=== PATIENT | female | born 1975 | race Caucasian/White ===

== ENCOUNTER 2020-01-21 15:31 | Emergency (ER) | payer MEDICAID ==
[~2020-01-21] VITALS: Ht 170.2 cm; Wt 106.8 kg
[2020-01-21 15:54] VITALS: BP 144/74; Ht 170.2 cm; Wt 106.8 kg
[2020-01-21] MEDS ORDERED: CRESTOR20 MG PO (15:56)
[2020-01-21] MEDS ORDERED: GLUCOPHAGE1000 MG PO (15:56)
[2020-01-21] MEDS ORDERED: MULTI-DAY VITAM1 TAB PO (15:57)
[2020-01-21] MEDS ORDERED: NEURONTIN600 MG PO (15:57)
[2020-01-21] MEDS ORDERED: LOW DOSE ASPIRI81 M1 PO (15:57)
[2020-01-21] MEDS ORDERED: CYMBALTA60 MG PO (15:57)
[2020-01-21] MEDS ORDERED: LISINOPRIL-HCT1 EAC4 PO (15:57)
[2020-01-21] MEDS ORDERED: ALBUTEROL SULF8.5 GM INH (15:58)
[2020-01-21] MEDS ORDERED: VOLTAREN75 MG PO (17:06)
[2020-01-21] MEDS ORDERED: VIBRAMYCIN 100100 MG PO (17:08)
== END 2020-01-21 18:32 | disposition home or self-care (01) ==
LOC: D.ER 15:31
DX: L03.115 Cellulitis of right lower limb (principal); S92.911A Unspecified fracture of right toe(s), initial encounter for closed fracture; E11.40 Type 2 diabetes mellitus with diabetic neuropathy, unspecified; Z79.84 Long term (current) use of oral hypoglycemic drugs; I10 Essential (primary) hypertension; J45.909 Unspecified asthma, uncomplicated; W19.XXXA Unspecified fall, initial encounter; Y93.9 Activity, unspecified; Y92.9 Unspecified place or not applicable

== ENCOUNTER 2021-01-01 12:41 | Emergency (ER) | payer MEDICAID ==
[~2021-01-01] VITALS: Ht 170.2 cm; Wt 129.5 kg
[~2021-01-01 12:41] MED LIST: ALBUTEROL SULF8.5 GM INH; CRESTOR20 MG PO; CYMBALTA60 MG PO; GLUCOPHAGE1000 MG PO; LISINOPRIL-HCT1 EAC4 PO; LOW DOSE ASPIRI81 M1 PO; MULTI-DAY VITAM1 TAB PO; NEURONTIN600 MG PO; VIBRAMYCIN 100100 MG PO; VOLTAREN75 MG PO
[2021-01-01 12:55] VITALS: Ht 170.2 cm; Wt 129.5 kg
[2021-01-01 13:06] VITALS: BP 140/70
== END 2021-01-01 13:07 | disposition left against medical advice (07) ==
LOC: D.ER 12:41
DX: R41.82 Altered mental status, unspecified (principal); Z53.29 Procedure and treatment not carried out because of patient's decision for other reasons; Z53.20 Procedure and treatment not carried out because of patient's decision for unspecified reasons; E11.40 Type 2 diabetes mellitus with diabetic neuropathy, unspecified; M79.7 Fibromyalgia; I10 Essential (primary) hypertension; J45.909 Unspecified asthma, uncomplicated; Z79.84 Long term (current) use of oral hypoglycemic drugs